=== PATIENT | male | born 1965 | race Caucasian/White ===

== ENCOUNTER → 2018-01-17 09:35 | Outpatient (CLI) | payer MEDICAID, SELFPAY ==
--- NOTE | 2018-01-17 09:39 | RAD_ITS ---
STUDY: X-RAY - RIGHT SHOULDER REASON FOR EXAM: Male, 52 years old. PAIN TECHNIQUE: 4 view(s) of the shoulder. COMPARISON: None. FINDINGS: Normal glenohumeral articulation. There is degenerative arthrosis of the acromioclavicular joint without inferior osseous spur formation. Normal acromion. Normal humeral head and visualized proximal humerus. The soft tissue structures are unremarkable. Normal visualized pulmonary apex. RAD/Shoulder min 2 Views IMPRESSION: There is degenerative arthrosis of the acromioclavicular joint without inferior osseous spur formation. Electronically Signed: Nikhil Hicks MD at 18:06 EDT , Service support ,
== END ==
PROVIDERS: Family Provider Internal Medicine; PCP Internal Medicine; Visit Provider Internal Medicine
DX: M19.011 Primary osteoarthritis, right shoulder (principal)
CPT/HCPCS: 73030

== ENCOUNTER 2018-01-27 22:14 | Emergency (ER) | payer MEDICAID, SELFPAY ==
[2018-01-27 22:15] VITALS: BP 142/89; PULSE 77; RESP 16; TEMP 36.8; O2SAT 97; BMI 27.0
--- NOTE | 2018-01-27 22:22 | ED.RN ---
PT STATES HE DOES NOT KNOW WHAT TODAY'S DATE IS OR MONTH
--- NOTE | 2018-01-27 22:28 | CT_ITS ---
STUDY: CT BRAIN WITHOUT CONTRAST REASON FOR EXAM: Male, 52 years old. Whole body shaking x3 today. Concern for seizure. RADIATION DOSAGE (If Supplied By Facility): CTDIvol = ( 44.99 ) mGy, DLP = ( 796.11 ) mGycm TECHNIQUE: Transaxial CT imaging of the brain was performed without administration of intravenous contrast material. Individualized dose optimization techniques were used for this CT. COMPARISON: None. FINDINGS: Normal soft tissue structures. Normal calvarium. Normal size ventricles and extra-axial spaces for the patient's age. Normal white matter tracts of the cerebral hemispheres. Normal basal ganglia and thalami. Normal brainstem. Normal cerebellum. There is no intracranial hemorrhage. There are no findings of an acute ischemic infarction. Mucosal thickening in the inferior recesses of the frontal sinuses and in multiple ethmoid sinuses bilaterally. CT/Brain/Head without Contrast IMPRESSION: Normal unenhanced CT scan of the brain. Mucosal thickening and occlusion of the inferior recesses of the frontal sinuses. Mucosal thickening and multiple bilateral ethmoid sinuses. Electronically Signed: Joseline Matson MD at 23:02 EDT , Service support ,
--- NOTE | 2018-01-27 22:32 | ED.DCSUM_ITS ---
- ER Visit Summary Date of Service: 01/27/18 Chief Complaint: [] Body shaking History of Present Illness: The patient is a 52 M patient stated he has had body shakes today on 3 different episodes. He said he remembers them. They have approximately minute. No loss of consciousness. He states it is a full body tremor and shake. He stated that it happens when he is standing. He was helped to the ground. Did not bite his tongue or urinate on himself. He states he has 32 ounces of beer in his system. This was the first time he drank beer in the last 10 days. If he cannot afford it he drinks daily however. Does not feel like he is an alcoholic and drinks socially however. His last marijuana was 2 days ago. Denies any other illicit drug use. Currently he feels normal. History of seizures Physical Examination: Vital signs reviewed General: Well-nourished well-developed Head: Normocephalic atraumatic Eyes: Pupils equal round and reactive to light extraocular movements intact. Eyes are bloodshot ENT: TMs clear no hemotympanum no trauma Neck: Nontender full range of motion Cardiovascular: Regular rate rhythm no murmurs normal S1-S2 Respiratory: No distress clear to auscultation bilaterally chest nontender Abdomen: Soft nontender nondistended normal bowel sounds no masses Back: Nontender no CVA tenderness Extremities: Nontender active range of motion ?4 extremities no trauma Skin: Normal color no trauma Neuro alert oriented cranial nerves II through XII intact normal strength sensation reflexes Test Results: [] Emergency Department Course and Treatment: [] Patient was given IV fluids and monitored. Lab work and CT had obtained. I work CBC chemistry normal except calcium 8.2. Alcohol 203. CT head showed nothing acute. Frontal sinus thickening. No seizure-like activity here. Discussed with the patient. I have a low suspicion for seizure. It cannot be alcohol withdrawal as he is alcohol in his system. Patient thinks it was just a tremor. Given IV fluids and feels better. I do not think I should start antiseizure medications. Will follow-up with his family doctor. Treatment Plan: [] Disposition: [] Impression: [] Reported body shaking Alcohol intoxication This note was generated with [employer] dictation software. It may contain incorrect words, spelling, and punctuation that were not noted in review of the chart prior to signing ED Disposition - Plan for ED Patient: Chief Complaint: Seizure Referrals: Maribel Lopez MD [Primary Care Provider] -
[2018-01-27] MEDS: 0.9% Normal Saline 1,000 ML 1000 ML IV (22:37)
[2018-01-27 22:41] LABS: Hemoglobin 13.8 g/dl (13.0-16.5); Mean Corp Hgb Conc 34.5 g/gl (32-36); Mean Corpuscular Hgb 30.1 pg (27.0-32.0); Mean Corpuscular Volume 87.1 fL (80-94); Mean Platelet Vol. 10.2 fl (6.2-12.0); Platelet Count 202 K/mm3 (150-450); RBC Distribution Width CV 12.8 % (11.6-14.6); RBC Distribution Width SD 41.4 fl (35.1-43.9); Red Blood Count 4.59 M/mm3 (4.6-6.2); White Blood Count 7.7 K/mm3 (4.4-11.0)
[2018-01-27 22:47] LABS: Scan Indicated on CBC? Y/N NO
[2018-01-27 23:08] LABS: Anion Gap 6 (5-15); BUN 7 mg/dL (7-18); BUN/Creat Ratio 7.8 RATIO (10-20); Calcium,Total 8.2 mg/dL (8.5-10.1); Chloride 106 mmol/L (98-107); EST Glomerular Filtration Rate 94 mL/min (>60); Est Glom Filt Rate - Afr Amer 114 mL/min (>60); Estimated Creatinine Clearance 103.42 ml/min; Glucose 83 mg/dL (74-106); Potassium 3.7 mmol/L (3.5-5.1); Sodium Level 139 mmol/L (136-145)
--- NOTE | 2018-01-27 23:45 | ED.DEP ---
ED Disposition - Plan for ED Patient: Disposition: Home or Assisted Living Chief Complaint: Seizure Instructions: What Is a Partial Seizure? Referrals: Maribel Lopez MD [Primary Care Provider] -
[2018-01-27] MEDS: Ibuprofen 600 MG Tablet PO (23:59)
[2018-01-28] VITALS: BP 132/79; PULSE 65; RESP 16; O2SAT 96
== END 2018-01-28 01:10 | disposition home or self-care (01) ==
PROVIDERS: Emergency Provider Emergency Medicine; Family Provider Internal Medicine; PCP Internal Medicine
DX: R25.8 Other abnormal involuntary movements (principal); F10.229 Alcohol dependence with intoxication, unspecified; F12.90 Cannabis use, unspecified, uncomplicated; Y90.7 Blood alcohol level of 200-239 mg/100 ml; Z72.0 Tobacco use
CPT/HCPCS: 70450; 80048; 80320; 85027; 96360; 99285; J7030; G0480

== ENCOUNTER 2018-01-31 21:53 | Emergency (ER) | payer MEDICAID, SELFPAY ==
[2018-01-31 21:55] VITALS: BP 132/81; PULSE 75; RESP 15; TEMP 36.6; O2SAT 98; BMI 27.1
--- NOTE | 2018-01-31 22:00 | ED.RN ---
NO OLD EKGS IN MUSE.
--- NOTE | 2018-01-31 22:02 | ED.RN ---
ABDON LUNSFORD (DAUGHTER)- [phone]
--- NOTE | 2018-01-31 22:08 | CT_ITS ---
STUDY: CT BRAIN WITHOUT CONTRAST REASON FOR EXAM: Male, 53 years old. Altered mental status RADIATION DOSAGE (If Supplied By Facility): CTDIvol = ( 44.99 ) mGy, DLP = ( 812.98 ) mGycm TECHNIQUE: Transaxial CT imaging of the brain was performed without administration of intravenous contrast material. Individualized dose optimization techniques were used for this CT. COMPARISON: Jan [address] scan head FINDINGS: Normal soft tissue structures. Normal calvarium. There is a stable calcification along the inner table of the left frontal region skull may represent benign calvarial calcification versus small meningioma. Normal size ventricles and extra-axial spaces for the patient's age. Normal white matter tracts of the cerebral hemispheres. Normal basal ganglia and thalami. Normal brainstem. Normal cerebellum. There is no intracranial hemorrhage. There are no findings of an acute ischemic infarction. There is mucoperiosteal inflammatory disease of the paranasal sinuses consistent with mild chronic sinusitis. CT/Brain/Head without Contrast IMPRESSION: No visualized evidence of acute hemorrhage infarct or edema. Mild sinusitis. Electronically Signed: Mecca Cooper MD at 23:25 EDT Tel , Service support ,
--- NOTE | 2018-01-31 22:08 | EKG12_ITS ---
Test Reason : CP Blood Pressure : / mmHG Vent. Rate : 063 BPM Atrial Rate : 063 BPM P-R Int : 124 ms QRS Dur : 092 ms QT Int : 420 ms P-R-T Axes : 030 070 073 degrees QTc Int : 429 ms Normal sinus rhythm Normal ECG Confirmed by ALVARO MARIE, ELENA ([id number]), art editor TOYA MEIER ([id number] on 02/03/2018 10:34:14 AM Referred By: NAVA
--- NOTE | 2018-01-31 22:15 | RAD_ITS ---
STUDY: X-RAY CHEST REASON FOR EXAM: Male, 53 years old. Unresponsive episode TECHNIQUE: Single AP portable view of the chest. COMPARISON: August 21, 2016 chest x-ray FINDINGS: The lungs are clear and expanded. There is no demonstrated pleural abnormality. Normal size heart. Normal mediastinum and justino. Normal visualized pulmonary arteries. Normal visualized aortic arch and descending thoracic aorta. Normal visualized thoracic spine. Normal visualized ribs, clavicles, and shoulders. There is no demonstrated abnormality of the visualized soft tissue structures of the upper abdomen. RAD/Chest 1 View (Portable) IMPRESSION: Normal x-ray examination of the chest. Electronically Signed: Mecca Cooper MD at 22:34 EDT Tel , Service support ,
--- NOTE | 2018-01-31 22:20 | ED.VISSUMM ---
- ER Visit Summary Date of Service: 01/31/18 Chief Complaint: Possible unresponsive episode History of Present Illness: The patient is a 53 M presents by EMS for possible unresponsive episode. Patient has been drinking tonight. He has a reported history of seizures. Per EMS, family stated that he had an episode where he became unresponsive. On arrival he is responsive and answering questions appropriately. He admits to alcohol use tonight. He states he drinks daily. He denies chest pain or shortness of breath. Denies abdominal pain, nausea, vomiting. Physical Examination: Vitals are stable. Patient is afebrile. Alert no acute distress. HEENT exam is unremarkable. Neck is supple. Lungs are clear and equal bilaterally. Heart is regular rate and rhythm. Abdomen is soft nontender nondistended. Extremities are unremarkable. Skin is warm and dry. No focal neurologic deficit. Normal strength and sensation. Intoxicated Remainder of exam is unremarkable. Emergency Department Course and Treatment: EKG is normal sinus rhythm rate of 63. Patient is given IV fluids. CBC, chemistries unremarkable. Urinalysis is unremarkable. Troponin is negative. Alcohol 242. Tox is negative. Chest x-ray shows no acute process. CT head shows mild sinusitis. Patient was observed in the ED for several hours. He is able to ambulate with a steady gait. He will be discharged with the police secondary to warrants for his arrest. Advised follow-up with primary care physician. Disposition: Discharge with police Impression: Alcohol intoxication This note was generated with [employer] dictation software. It may contain incorrect words, spelling, and punctuation that were not noted in review of the chart prior to signing ED Disposition - Plan for ED Patient: Disposition: Home or Assisted Living Chief Complaint: Alt LOC Instructions: ED Alcohol Intoxication Referrals: Maribel Lopez MD [Primary Care Provider] -
--- NOTE | 2018-01-31 22:23 | ED.DCSUM_ITS ---
- ER Visit Summary Date of Service: 01/31/18 Chief Complaint: Possible unresponsive episode History of Present Illness: The patient is a 53 M presents by EMS for possible unresponsive episode. Patient has been drinking tonight. He has a reported history of seizures. Per EMS, family stated that he had an episode where he became unresponsive. On arrival he is responsive and answering questions appropriately. He admits to alcohol use tonight. He states he drinks daily. He denies chest pain or shortness of breath. Denies abdominal pain, nausea, vomiting. Physical Examination: Vitals are stable. Patient is afebrile. Alert no acute distress. HEENT exam is unremarkable. Neck is supple. Lungs are clear and equal bilaterally. Heart is regular rate and rhythm. Abdomen is soft nontender nondistended. Extremities are unremarkable. Skin is warm and dry. No focal neurologic deficit. Normal strength and sensation. Intoxicated Remainder of exam is unremarkable. Emergency Department Course and Treatment: EKG is normal sinus rhythm rate of 63. Patient is given IV fluids. CBC, chemistries unremarkable. Urinalysis is unremarkable. Troponin is negative. Alcohol 242. Tox is negative. Chest x- ray shows no acute process. CT head shows mild sinusitis. Patient was observed in the ED for several hours. He is able to ambulate with a steady gait. He will be discharged with the police secondary to warrants for his arrest. Advised follow-up with primary care physician. Disposition: Discharge with police Impression: Alcohol intoxication This note was generated with [employer] dictation software. It may contain incorrect words, spelling, and punctuation that were not noted in review of the chart prior to signing ED Disposition - Plan for ED Patient: Disposition: Home or Assisted Living Chief Complaint: Alt LOC Instructions: ED Alcohol Intoxication Referrals: Maribel Lopez MD [Primary Care Provider] -
[2018-01-31] MEDS: 0.9% Normal Saline 1,000 ML 1000 ML IV (22:24)
[2018-01-31 22:30] LABS: Bedside Glucose 90 mg/dL (70-110)
[2018-01-31 22:34] LABS: Absolute Lymphocyte Count 3.86 X10^3/ul (0.83-4.51); Absolute Neutrophil Count 2.1 X10^3/uL (2.0-7.7); Basophil# 0.06 X10^3/uL; Basophil% 0.9 % (0-1); Eosinophil# 0.47 X10^3/uL; Eosinophils% 6.9 % (0-5); Hematocrit 39.2 % (40-54); Hemoglobin 13.4 g/dl (13.0-16.5); Lymphocyte # 3.86 X10^3/ul (4.0); Lymphocyte % 56.6 % (19-41); Mean Corp Hgb Conc 34.2 g/gl (32-36); Mean Corpuscular Hgb 29.7 pg (27.0-32.0); Mean Corpuscular Volume 86.9 fL (80-94); Mean Platelet Vol. 9.9 fl (6.2-12.0); Monocyte# 0.34 X10^3/uL; Neutrophil # 2.08 X10^3/uL (2.7-7.7); Neutrophil % 30.5 % (47-70); POSITIVE COUNT NO; POSITIVE DIFFERENTIAL NO; POSITIVE MORPHOLOGY NO; Platelet Count 184 K/mm3 (150-450); RBC Distribution Width CV 12.9 % (11.6-14.6); RBC Distribution Width SD 41.3 fl (35.1-43.9); Red Blood Count 4.51 M/mm3 (4.6-6.2); White Blood Count 6.8 K/mm3 (4.4-11.0)
[2018-01-31 22:46] LABS: Anion Gap 8 (5-15); BUN 6 mg/dL (7-18); BUN/Creat Ratio 6.8 RATIO (10-20); Calcium,Total 8.4 mg/dL (8.5-10.1); Chloride 106 mmol/L (98-107); Creatinine, Serum 0.88 mg/dL (0.70-1.30); EST Glomerular Filtration Rate 96 mL/min (>60); Est Glom Filt Rate - Afr Amer 117 mL/min (>60); Estimated Creatinine Clearance 104.58 ml/min; Glucose 86 mg/dL (74-106); Potassium 3.6 mmol/L (3.5-5.1); Sodium Level 140 mmol/L (136-145)
[2018-01-31 23:00] LABS: Bacteria 0 SEEN /hpf (None Seen); Mucous, Urine 0 SEEN /hpf (<or=2+); Red Blood Cells-Urine 0 SEEN /hpf (0-5); Squamous Epithelial Cells - UA 0 SEEN /hpf (0-5); White Blood Cells 0 SEEN /hpf (0-5)
[2018-01-31 23:02] VITALS: BP 112/79; PULSE 90; RESP 16; O2SAT 97
[2018-01-31 23:03] LABS: Color, Urine Straw (Yellow); Glucose, Dipstick Normal (Normal); Ketone-Dipstick Negative (Negative); Leukocyte Esterase-Dipstick Negative /ul (Negative); Nitrite-Dipstick Negative (Negative); Occult Blood-Urine Negative /ul (Negative); Protein-Dipstick Negative (Negative); Specific Gravity, Urine 1.005 (1.002-1.030); Urine Bilirubin Dipstick Negative (Negative); Urine Clarity Clear (Clear); Urine Urobilinogen Normal (Normal)
[2018-01-31 23:27] LABS: Amphetamine Urine VISTA NEGATIVE (<1000 ng/mL); Barbiturate Urine VISTA NEGATIVE (< 200 ng/mL); Benzodiazepine Urine VISTA NEGATIVE (< 200 ng/mL); Cocaine Urine VISTA NEGATIVE (< 300 ng/mL); Ecstacy Urine VISTA NEGATIVE (< 500 ng/mL); Methadone Urine VISTA NEGATIVE (< 300 ng/mL); PCP Urine VISTA NEGATIVE (< 25 ng/mL); THC Urine VISTA NEGATIVE (< 50 ng/mL); Vista UDS pH Range 5
[2018-02-01 00:11] VITALS: BP 119/62; PULSE 72; RESP 18; O2SAT 94
[2018-02-01 01:08] VITALS: BP 109/64; PULSE 56; RESP 97
[2018-02-01 02:22] VITALS: BP 116/67; PULSE 87; RESP 16; RESP 18; O2SAT 99
--- NOTE | 2018-02-01 02:22 | ED.DEP ---
ED Disposition - Plan for ED Patient: Chief Complaint: Alt LOC Instructions: ED Alcohol Intoxication Referrals: Maribel Lopez MD [Primary Care Provider] -
== END 2018-02-01 02:23 | disposition home or self-care (01) ==
PROVIDERS: Emergency Provider Emergency Medicine; Family Provider Internal Medicine; PCP Internal Medicine
DX: F10.229 Alcohol dependence with intoxication, unspecified (principal); Y90.8 Blood alcohol level of 240 mg/100 ml or more; F12.90 Cannabis use, unspecified, uncomplicated; Z72.0 Tobacco use
CPT/HCPCS: 70450; 71045; 80048; 80307; 80320; 81001; 82962; 84484; 85025; 93005; 96360; 96361; 99285; J7030; A4216; G0480

== ENCOUNTER → 2018-03-01 07:58 | Outpatient (CLI) | payer MEDICAID, SELFPAY ==
--- NOTE | 2018-03-01 08:03 | RAD_ITS ---
STUDY: X-RAY - LUMBAR SPINE REASON FOR EXAM: Male, 53 years old. Low back pain following a recent fall. TECHNIQUE: 3 view(s) of the lumbar spine were obtained. COMPARISON: None FINDINGS: Normal lumbar lordosis. There is no substantial scoliosis. There is a normal alignment of the vertebrae. There is approximately 20% loss of height of the superior endplate of the L1 vertebrae. A compression fracture should be ruled out. Mild degree of disc space narrowing at the L4-L5 and L5-S1 levels. Spondylosis at the L2-L3 and L3-L4 levels. The soft tissue structures are unremarkable. RAD/Lumbar Spine 2 or 3 Views IMPRESSION: 20% loss of height of the superior endplate of the L1 vertebrae. This is suggestive of a compression fracture. Degenerative changes. Electronically Signed: Alexy Olivarez MD at 8:26 EDT Tel [phone], Service support ,
== END ==
PROVIDERS: Family Provider Internal Medicine; PCP Internal Medicine; Visit Provider Nurse Practitioner Family
DX: S39.92XA Unspecified injury of lower back, initial encounter (principal); W19.XXXA Unspecified fall, initial encounter; M48.07 Spinal stenosis, lumbosacral region; M47.896 Other spondylosis, lumbar region
CPT/HCPCS: 72100

== ENCOUNTER 2019-01-17 14:20 | Emergency (ER) | payer MEDICAID, SELFPAY ==
[2019-01-17 14:22] VITALS: BP 143/80; PULSE 73; RESP 16; TEMP 36.8; O2SAT 99; BMI 23.8
--- NOTE | 2019-01-17 14:47 | ED.VISSUMM ---
- ER Visit Summary Date of Service: 01/17/19 Chief Complaint: Back pain History of Present Illness: The patient is a 53 M who presents with back pain. He states that 3 days ago he fell down some steps. Ever since then he is having pain in his upper back. Is worse with movement. Nothing makes it better. He took no medications for this at home. Denies any bowel or bladder incontinence. Physical Examination: Vital signs are reviewed. HEENT exam is atraumatic. Heart is regular rate and rhythm. Lungs are clear bilaterally. Abdomen soft nontender. His back is upper thoracic bilateral paraspinal tenderness. There is no midline tenderness. No cervical or lumbar pain. Neurologic exam normal Test Results: None performed Emergency Department Course and Treatment: Patient has muscular pain but there is no bony tenderness. I do not feel any x-rays are needed. He likely strained some muscles when he fell. Patient will be discharged with naproxen and Flexeril. He will follow-up with his PCP Treatment Plan: [] Disposition: Discharge Impression: Thoracic strain This note was generated with [employer] dictation software. It may contain incorrect words, spelling, and punctuation that were not noted in review of the chart prior to signing ED Disposition - Plan for ED Patient: Referrals: Maribel Lopez MD [Primary Care Provider] -
--- NOTE | 2019-01-17 14:48 | ED.DEP ---
ED Disposition - Plan for ED Patient: Disposition: Home or Assisted Living Instructions: ED Neck Back Pain General Prescriptions: Naproxen [Naprosyn] 500 mg PO BID PRN #20 tab Cyclobenzaprine [Flexeril] 10 mg PO TID PRN #20 tab PRN Reason: Muscle Spasm Referrals: Maribel Lopez MD [Primary Care Provider] -
== END 2019-01-17 14:56 | disposition home or self-care (01) ==
PROVIDERS: Emergency Provider Emergency Medicine; Family Provider Internal Medicine; PCP Internal Medicine
DX: S29.012A Strain of muscle and tendon of back wall of thorax, initial encounter (principal); W10.9XXA Fall (on) (from) unspecified stairs and steps, initial encounter; Y93.9 Activity, unspecified; Y92.9 Unspecified place or not applicable; Z72.0 Tobacco use
CPT/HCPCS: 99282